=== PATIENT | female | born 1975 | race American Indian/Alaskan Native ===

== ENCOUNTER 2017-04-13 17:27 | Emergency (ER) | payer MEDICAID ==
[2017-04-13 17:31] VITALS: PULSE 81; RESP 18; TEMP 97; O2SAT 99
--- NOTE | 2017-04-13 18:37 | ED PDOC ---
HPI: Psych/Substance Abuse Time Seen by Provider: 04/13/17 17:28 Chief Complaint (Nursing): Psychiatric Evaluation Chief Complaint (Provider): Psych evalution History Per: Patient History/Exam Limitations: no limitations Additional Complaint(s): Patient is 41 y/o female with a past medical history of schizophrenia presenting to the emergency department for a psych evaluation. Reports that she has been hearing voices for a while. Although she has schizophrenia, she denies taking any medication. Also denies suicidal ideation, homicidal ideation, or other complaints. PCP: none provided. Past Medical History Reviewed: Historical Data, Nursing Documentation, Vital Signs Vital Signs: Last Vital Signs Temp 97 F L 04/13/17 17:28 Pulse 81 04/13/17 17:28 Resp 18 04/13/17 17:28 BP 160/105 H 04/13/17 17:28 Pulse Ox 99 04/13/17 17:28 - Medical History PMH: Schizophrenia - Family History Family History: States: Unknown Family Hx - Allergies Allergies/Adverse Reactions: Allergies Allergy/AdvReac Type Severity Reaction Status Date / Time No Known Allergies Allergy Verified 04/13/17 17:28 Review of Systems ROS Statement: Except As Marked, All Systems Reviewed And Found Negative Psych: Positive for: Other (auditory hallucinations). Negative for: Suicidal ideation (or homicidal ideation) Physical Exam - Reviewed Nursing Documentation Reviewed: Yes Vital Signs Reviewed: Yes - Physical Exam Appears: Positive for: Well, Non-toxic, No Acute Distress Head Exam: Positive for: ATRAUMATIC, NORMAL INSPECTION, NORMOCEPHALIC Skin: Positive for: Normal Color, Warm, Dry Eye Exam: Positive for: Normal appearance Neck: Positive for: Normal Cardiovascular/Chest: Positive for: Regular Rate, Rhythm Respiratory: Negative for: Accessory Muscle Use, Respiratory Distress Extremity: Positive for: Normal ROM. Negative for: Pedal Edema Neurologic/Psych: Positive for: Alert, Oriented (x3) - ECG O2 Sat by Pulse Oximetry: 99 (RA) Pulse Ox Interpretation: Normal Medical Decision Making Medical Decision Makin:40 Crisis evaluation completed. ~ Scribe Attestation: Documented by Nata Gallo, acting as a scribe for MALACHI Cha. Provider Scribe Attestation: All medical record entries made by the Scribe were at my direction and personally dictated by me. I have reviewed the chart and agree that the record accurately reflects my personal performance of the history, physical exam, medical decision making, and the department course for this patient. I have also personally directed, reviewed, and agree with the discharge instructions and disposition. Disposition - Clinical Impression Clinical Impression: Schizophrenia - Disposition Disposition: Routine/Home Disposition Time: 18:37 Condition: GOOD Instructions: Schizophrenia (ED) Forms: [employer] (Armenian)
[2017-04-13 18:45] VITALS: BP 148/86
== END 2017-04-13 19:00 | disposition home or self-care (01) ==
LOC: H.ER 17:27
DX: F20.9 Schizophrenia, unspecified (principal)